=== PATIENT | female | born 1965 | race Caucasian/White ===

== ENCOUNTER 2017-06-17 04:01 | Observation (INO) | payer OTHER ==
[~2017-06-17] VITALS: Ht 160 cm; Wt 105.8 kg
[2017-06-17] VITALS (8 sets, daily range): BP systolic 132–159; BP diastolic 72–86; PULSE 76–92; RESP 14–21; TEMP 97.7–98.4; O2SAT 95–98
[~2017-06-17 04:01] MED LIST: CIPR-9 PO; DOXY100C PO; PERC5TAB12 PO
[2017-06-17] MEDS ORDERED: ACETAMINOPHEN/HYDROcodone 325 MG/5 MG TAB PO ONE (04:15)
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
--- NOTE | 2017-06-17 08:45 | RADRPT ---
EXAM DATE/TIME: 06/17/2017 07:44 [facility] COMPARISON: No previous studies available for comparison. INDICATIONS : Right leg edema. MEDICAL HISTORY : Right leg edema. Cellulitis. SURGICAL HISTORY : Hysterectomy. ENCOUNTER: Initial ACUITY: 2 day PAIN SCORE: 7/10 LOCATION: Right leg. TECHNIQUE: Venous ultrasound of the leg was performed from the inguinal ligament to the proximal calf. Real-lynn e, color Doppler and spectral tracing, compression and augmentation techniques were used. FINDINGS: There is normal compressibility of the deep venous system from the inguinal region to the proximal ca lf. No echogenic clot is seen in the lumen of the common femoral, femoral, popliteal, and posterior tibial veins. There is a normal response of the venous system to proximal and distal augmentation an d respiration. CONCLUSION: 1. No sonographic evidence for right lower extremity DVT. William Person MD on June 17, 2017 at 8:41 Board Certified Radiologist. This report was verified electronically.
[2017-06-17] MEDS ORDERED: ASPIRIN 325 MG TAB PO ONE (10:30)
[2017-06-17] MEDS ORDERED: SODIUM CHLORIDE 0.9% FLUSH 10 ML FLUSH IVF PRN (10:30)
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
[2017-06-17] MEDS ORDERED: NITROGLYCERIN 0.4 MG SL 25 TABS/BTL SL PRN (11:00)
[2017-06-17] MEDS ORDERED: ONDANSETRON HCL 4 MG/2 ML VIAL IV PUSH PRN (11:00)
[2017-06-17] MEDS ORDERED: ACETAMINOPHEN 500 MG CPLT PO PRN (11:00)
[2017-06-17 11:25] LABS: TROPONIN I LESS THAN 0.02 NG/ML (0.02-0.05)
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
[2017-06-17] MEDS ORDERED: KETOROLAC TROMETHAMINE 30 MG/ML (IVP) VIAL IV PUSH ONE (11:45)
[2017-06-17] MEDS ORDERED: RESP: ALBUTEROL 2.5 MG/3 ML NEB (PRN) NEB (11:45)
[2017-06-17 14:36] LABS: TROPONIN I LESS THAN 0.02 NG/ML (0.02-0.05)
[2017-06-17 17:15] LABS: HEMOGLOBIN A1C 5.9 % (4.3-6.0)
[2017-06-17 17:26] LABS: TROPONIN I LESS THAN 0.02 NG/ML (0.02-0.05)
[2017-06-17] MEDS: DOXYCYCLINE HYCLATE 100 MG CAP PO SCH (20:15)
[2017-06-17] MEDS: KETOROLAC TROMETHAMINE 30 MG/ML (IVP) VIAL IV PUSH SCH (20:15)
[2017-06-17] MEDS: SODIUM CHLORIDE 0.9% FLUSH 10 ML FLUSH IV FLUSH SCH (20:15)
[2017-06-18 00:02] VITALS: PULSE 89
[2017-06-18] MEDS: KETOROLAC TROMETHAMINE 30 MG/ML (IVP) VIAL IV PUSH SCH (02:13)
[2017-06-18 04:24] VITALS: BP 145/84; PULSE 83; RESP 18; TEMP 97.3; O2SAT 97
[2017-06-18 04:41] VITALS: PULSE 74
[2017-06-18 07:49] VITALS: BP 137/80; PULSE 72; RESP 18; TEMP 97.9; O2SAT 96
[2017-06-18] MEDS ORDERED: ALPRAZolam 0.5 MG TAB PO ONE (08:00)
[2017-06-18] MEDS: SODIUM CHLORIDE 0.9% FLUSH 10 ML FLUSH IV FLUSH SCH (09:00)
[2017-06-18] MEDS ORDERED: ASPIRIN 325 MG TAB PO SCH (09:00)
[2017-06-18] MEDS ORDERED: REGADENOSON INJ 0.4 MG/5 ML SYR ONE (09:32)
[2017-06-18 11:06] VITALS: BP 141/86; PULSE 75; RESP 18; TEMP 97.8; O2SAT 98
--- NOTE | 2017-06-18 11:10 | RADRPT ---
EXAM DATE/TIME: 06/18/2017 09:04 [facility] COMPARISON: No previous studies available for comparison. INDICATIONS : Substernal chest pain radiating to left arm. Angina. DOSE: 35 mCi Tc99m Myoview at stress. 11 mCi Tc99m Myoview at rest. 0.4 mg Lexiscan STRESS SYMPTOMS: Chest pressure, dyspnea and head pressure. EJECTION FRACTION: 66% MEDICAL HISTORY : Asthma. SURGICAL HISTORY : Hysterectomy. ENCOUNTER: Initial ACUITY: 1 day PAIN SCALE: 5/10 LOCATION: Substernal chest TECHNIQUE: The patient underwent pharmacologic stress with infusion of prescribed dose. Continuous ECG tracing was monitored during stress. Gated SPECT imaging was performed after stress and conventional SPECT i maging was performed at rest. The examination was performed on a SPECT/CT scanner, both attenuation and non-corrected datasets were reviewed. FINDINGS: DISTRIBUTION: The maximum perfused segment at stress is in the anterior lateral wall. PERFUSION STUDY: The pattern of perfusion at stress is within normal limits. GATED STUDY: There is intact wall motion and thickening without hypokinetic or dyskinetic segments. CONCLUSION: 1. Normal wall motion and calculated ejection fraction of 66%. 2. No fixed or reversible wall defects to suggest ischemia or infarction. RISK CATEGORY: Low (<1% Annual Mortality Rate) Eze Olivares MD on June 18, 2017 at 11:03 Board Certified Radiologist. This report was verified electronically.
[2017-06-18] MEDS: DOXYCYCLINE HYCLATE 100 MG CAP PO SCH (11:29)
--- NOTE | 2017-06-18 11:30 | TR ---
Date Performed: 06/18/2017 Time Performed: 09:36:17 DOCTOR: Sam Patel DRUG LIST: CLINICAL HISTORY: REASON FOR TEST: CHEST PAIN REASON FOR ENDING: OBSERVATION: CONCLUSION: Lexiscan stress test was performed under standard four minute protocol. Radionuclid e was injected one minute prior to ending the test. No electrocardiographic abormalities were present to suggest ischemia. Nuclear imaging and interpretation are pending. COMMENTS:
--- NOTE | 2017-06-18 11:36 | EKG ---
Date Performed: 06/17/2017 Time Performed: 10:52:57 PTAGE: 51 years EKG: Sinus rhythm NORMAL ECG NO PREVIOUS TRACING DOCTOR: Sam Patel Interpretating Date/Time 06/18/2017 11:35:51
--- NOTE | 2017-06-18 11:36 | EKG ---
Date Performed: 06/17/2017 Time Performed: 17:31:28 PTAGE: 51 years EKG: Sinus rhythm POSSIBLE LEFT ATRIAL ENLARGEMENT NONSPECIFIC T-WAVE ABNORMALITY BORDERLINE ECG PREVIOUS TRACING : 06/17/2017 10.52 Since previous tracing, no significant change noted DOCTOR: Sam Patel Interpretating Date/Time 06/18/2017 11:35:38
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
[2017-06-18 15:33] VITALS: BP 166/86; PULSE 78; RESP 18; TEMP 98.4; O2SAT 99
--- NOTE | 2017-06-18 15:45 | HHI.DCPOC ---
Discharge Care Plan Diagnosis: (1) Chest pain (2) Cellulitis Goals to Promote Your Health APPLY SILVADENE/LIDOCAINE MIXTURE TO THE WOUND TWICE DAILY. FOLLOW UP WITH OUTPATIENT WOUND CARE. * To prevent worsening of your condition and complications * To maintain your health at the optimal level Directions to Meet Your Goals Take your medications as prescribed Follow your dietary instruction Follow activity as directed Keep your appointments as scheduled Take your immunizations and boosters as scheduled If your symptoms worsen call your PCP, if no PCP go to Urgent Care Center or Emergency Room Smoking is Dangerous to Your Health. Avoid second hand smoke Call the 24-hour hour crisis hotline for domestic abuse at [place] Jun 18, 2017 15:45
[2017-06-18] MEDS ORDERED: SILVER SULFADIAZINE 1% CR 50 GM JAR TOPICAL SCH (17:00)
[2017-06-18] MEDS ORDERED: LIDOCAINE 4% TOPICAL SCH ×2 (17:00)
[2017-06-18] MEDS ORDERED: SILVER SULFADIAZINE 1% TOPICAL SCH ×2 (17:00)
[2017-06-18] MEDS ORDERED: LIDOCAINE 4% CREAM 5 GM TUBE TOPICAL SCH (17:00)
== END 2017-06-18 18:05 | disposition home or self-care (01) ==
LOC: NEPE 04:01 → NEDA 10:27 → NEDH 11:36 → NEDA 11:37 → NEPHCDU 12:23
DX: R07.89 Other chest pain (principal); L03.115 Cellulitis of right lower limb; J45.909 Unspecified asthma, uncomplicated; F40.240 Claustrophobia; M79.7 Fibromyalgia; R94.31 Abnormal electrocardiogram [ECG] [EKG]
CPT/HCPCS: 78452; 82550; 83036; 84484; 93005; 93017; 93971; 96374; 96376; 99285; A9502; G0378; J1885; J2785; 71045; 71275; 80048; 83735; 85025; 85379; 85610; 85730; 96375; J1200; Q9967